=== PATIENT | male | born 1970 ===

== ENCOUNTER 2023-09-12 12:48 | Outpatient (RCR) | payer OTHER, SELFPAY ==
--- NOTE | 2023-09-25 09:24 | MHC.SP.ADU ---
Referring provider: Bharati Ragsdale Reason for Referral: [place] CVA Type of Treatment: 62969 Evaluation Speech Sound Production WITH Language Date of Plan of Treatment: 09/12/23 Onset of Symptoms/Illness: 08/15/23 Date Treatment Started: 09/12/23 Medical Diagnosis: Hx stroke Primary Speech Language Diagnosis: R47.01 Aphasia History Mr. Darron Munoz is a charismatic 53 year old male referred for a speech-language evaluation by Bharati Ragsdale from [facility]. Mr. Munoz is and has one adult child. 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 Last month on 08/15/23, Mr. Munoz reports having had a stroke, after which he was seen for occupational therapy and physical therapy to target fine motor skills (writing) and right sided deficits. He says that he?s since been discharged from OT and PT services, and that, during his wait to be seen for a speech evaluation, he feels his speech has returned to baseline. He denies any difficulty with comprehension, expression, or cognition, but wanted to come for an evaluation ?in case there was something subtle [he] was not noticing.? He did mention that when he ?speaks too fast [he] may not annunciate perfectly,? but otherwise denies having any communicative difficulties. Medical History: Other: Bronchitis, diabetes, hypertension, stroke Respiratory Needs: Room Air Patient Orientation: Alert & Oriented x 4 Social History: Employment Status: [employer] Employ[employer] Highest level of education obtained: Completed High School/GED Comment: Other Therapies Seen in Current Calendar Year: Occupational Therapy, Physical Therapy Reported Speech, Language, Cognition difficulties: Not Applicable Comments: Patient feels his communicative abilities have mostly returned to baseline, though he mentioned when he ?speaks too fast [he] may not annunciate perfectly. Assessment Speech Production: Within Functional Limits Clinical Impression: Intact Observations: Clear and precise articulation noted. Patient was 100% intelligible to the clinician, a trained, but unfamiliar listener. Patient formulated complete sentences with correct use of grammatical structures and semantics. No word finding difficulty evident in conversation. Tests of Speech & Lang Adults: BDAE BNT Clinical Impression: Intact Observations: WORD FINDING: Mr. Munoz completed the Malcolm Naming Test (BNT) Standard Form. He was presented with images, which he was instructed to name in a confrontation naming task. Mr. Munoz correctly named 53 out of 60 images independently. He named an additional 2 items when given multiple choices and another two items when prompted with semantic cues (i.e. ?This is something you might use with a salad? for target word ?tongs?). Mr. Munoz commented that some test stimuli were items that were unfamiliar to him (i.e. ?yoke? and ?abacus?), though he was able to adequately describe what their function might be. No instances of word retrieval difficulty were noted during our session. Mr. Munoz denies having trouble finding words. Mr. Munoz was also administered the Auditory Comprehension, Oral Expression, Reading, and Writing subtests of the Malcolm Diagnostic Aphasia Examination. His performance is summarized below: RECEPTIVE LANGUAGE: Mr. Munoz completed single-step commands, which were verbally presented to him, demonstrating basic word discrimination (i.e. ?Point to your shoulder? ?Point to the picture representing an ant?) (score 16/16). He identified body parts on himself and line images from an array of 4. He likewise completed multi-step and more complex commands without any difficulty. Mr. Munoz was presented with a verbal direction. Each element of the direction carried out was scored with 1 point. He received a score of 10 out of 10 on this task. He correctly answered yes/no questions about ideational material in 4 out of 4 trials and about short stories read aloud for him in 8 out of 8 trials. Questions were presented in pairs (6 pairs), each pair consisting of a yes-item and a no-item. In order to gain 1 point, Mr. Munoz was to answer both questions correctly. He received a score of 6/6. No difficulties were identified in the area of receptive language. Patient denied experiencing any difficulty with his understanding. EXPRESSIVE LANGUAGE:Mr. Munoz generated the days of the week and counted to 21 without difficulty, receiving a score of 4/4. He reported no difficulties with automatic speech tasks. Mr. Munoz repeated single words in 5 out of 5 trials and complete sentences in 2 out of 2 trials. He exhibited no difficulty with repetition. He responded appropriately to responsive naming questions (i.e. ?What do you use to shave??) in 5 out of 5 trials. Items immediately named were scored as 2 points and items named after a short time delay (>5 sec) were scored as 1 point. Patient named 5 items immediately, receiving a score of 10/10. Mr. Munoz correctly named ?special categories,? which included letters, numbers, and colors in 12 out of 12 trials. He formulated complete sentences with correct usage of grammatical forms, varied sentence structures, clear articulation, and no word finding difficulty. Patient?s expressive language skills are deemed to be within functional limits. READING: Mr. Munoz was able to match letters across cases and scripts, demonstrating basic symbol recognition and receiving a score of 4/4 on this task. He was able to match numbers to fingers and dot patterns, receiving a score of 4/4 on this task as well. Mr. Munoz matched pictures to written words, demonstrating intact word identification and receiving a score of 4/4 on this task. He read aloud single words and whole sentences without error. Mr. Munoz read aloud single words within 0-3 seconds, demonstrating basic oral word reading (15/15 score). He read aloud sentences correctly in 5 out of 5 trials. Mr. Munoz answered comprehension questions correctly in 3/3 trials. He read aloud sentences and paragraphs and selected the completion from a choice of 4 without assistance (4/4 correct). No difficulties identified in the area of reading. WRITING: Mr. Munoz was able to sign and print his name. He wrote dictated letters and numbers, and copied sentences. Mr. Munoz commented that he must write a little bit slower due to his fine motor difficulties, otherwise does not have difficulty writing letters, words, and sentences. No difficulties were identified in the area of written language (score 14/14). Impressions and Recommendations Summary: Impact on Daily Function/Activity Limitations: Daily Activities: None Interpersonal Interactions: None Education: None Employment: None Community: None Recommendation for Speech Therapy: NA:Typical Evaluation Based on observations made during this evaluation, Mr. Munoz presents with receptive and expressive language skills that are within functional limits. Speech therapy is not warranted at this time. Patient Education: Completed: Yes Patient/Caregiver Education: Described Results of Evaluation Patient expressed understanding of evaluation Comments/Barriers to Learning: It was a pleasure meeting and working with Mr. Munoz. Please do not hesitate to contact the [facility] if we can be of further assistance. Bid Writer Clinican/Clinical Fellow: No Supervisory Statement: N/A Speech Language Pathologist: Jana Marshall M.A., CCC-[employer]
== END 2023-09-28 16:10 | disposition home or self-care (01) ==
LOC: HO.SH 12:48
PROVIDERS: PCP Physician Assistant Medical; Visit Provider Student in an Organized Health Care Education/Training Program
DX: I63.81 Other cerebral infarction due to occlusion or stenosis of small artery (principal)
CPT/HCPCS: 92523